=== PATIENT | female | born 1945 | race Caucasian/White ===

== ENCOUNTER 2020-10-06 13:33 | Observation (INO) ==
[2020-10-06] MEDS ORDERED: ASPIRIN 325 MG TABLET PO STA (13:49)
[2020-10-06 14:37] LABS: Basophils % 0.5 % (0.0-0.8); Eosinophils % 0.5 % (0.00-10.9); Hematocrit 36.2 VOL% (35.7-47.0); Hemoglobin 11.5 GM/DL (12.0-16.0); Immature Granulocytes % 0.3 %; Immature Granulocytes Absolute 0.02 #; Lymphocytes # 1.1 10*3/uL (1.4-4.0); Lymphocytes % 13.3 % (21.3-54.2); Mean Corpuscular HGB Conc 31.8 GM/DL (32-36); Mean Platelet Volume 9.2 FL (9.6-12.0); Monocytes % 6.4 % (1.7-12.7); Platelet Count 222 T/CUMM (130-400); Red Blood Count 4.36 MC/CUMM (3.8-5.5); Red Cell Distribution Width 17.5 % (9.3-17.3)
[2020-10-06 14:48] LABS: INR 1.2; PT Patient Result 12.4 SECS (9.8-11.9)
[2020-10-06 14:59] LABS: Albumin 3.3 G/DL (3.4-5.0); Bilirubin,Total 0.6 MG/DL (0.2-1.0); Calcium 8.6 MG/DL (8.5-10.1); Osmolality,Calculated 265.4 MOS/KG (273-304); Potassium 3.7 MMOL/L (3.5-5.1); Total Protein 6.7 G/DL (6.4-8.2)
[2020-10-06] MEDS ORDERED: ACETAMINOPHEN 325 MG TABLET PO PRN (15:46)
[2020-10-06] MEDS ORDERED: ZALEPLON 5 MG CAPSULE PO PRN (15:46)
[2020-10-06] MEDS ORDERED: diphenhydrAMINE CAP 25 MG CAPSULE PO PRN (15:46)
[2020-10-06] MEDS ORDERED: ENOXAPARIN 40 MG/0.4 ML SYRINGE SUBCUT SCH (17:00)
[2020-10-06] MEDS ORDERED: WARFARIN 3 MG TABLET PO SCH (18:00)
[2020-10-06] MEDS: MEMANTINE 10 MG TABLET PO SCH (20:18)
[2020-10-06] MEDS: METHOCARBAMOL 500 MG TABLET PO SCH (20:18)
[2020-10-06] MEDS: OMEGA 3 ACID ETHYL ESTERS 1 GM CAPSULE PO SCH (20:18)
[2020-10-06] MEDS: DONEPEZIL 10 MG TABLET PO SCH (20:18)
[2020-10-06] MEDS ORDERED: ASPIRIN EC 81 MG TABLET PO SCH (21:00)
[2020-10-06] MEDS ORDERED: ONDANSETRON 4 MG/2 ML VIAL IV PRN (22:12)
[2020-10-07 04:45] LABS: Basophils % 0.2 % (0.0-0.8); Hemoglobin 11.3 GM/DL (12.0-16.0); Immature Granulocytes % 0.3 %; Immature Granulocytes Absolute 0.03 #; Lymphocytes # 1.2 10*3/uL (1.4-4.0); Lymphocytes % 12.3 % (21.3-54.2); Mean Corpuscular HGB Conc 31.4 GM/DL (32-36); Mean Corpuscular Volume 83.5 FL (87-102); Mean Platelet Volume 9.4 FL (9.6-12.0); Monocytes % 6.5 % (1.7-12.7); Neutrophils % 80.7 % (38.7-73.9); Platelet Count 208 T/CUMM (130-400); Red Blood Count 4.31 MC/CUMM (3.8-5.5); Red Cell Distribution Width 17.7 % (9.3-17.3); White Blood Count 9.6 T/CUMM (4-12)
[2020-10-07 05:10] LABS: Potassium 4.4 MMOL/L (3.5-5.1)
[2020-10-07] MEDS: POTASSIUM CHLORIDE 10 MEQ TABLET PO SCH (08:50)
[2020-10-07] MEDS: CHOLECALCIFEROL 5,000 UNIT TABLET PO SCH (08:50)
[2020-10-07] MEDS: MEMANTINE 10 MG TABLET PO SCH ×2 (08:50→20:56)
[2020-10-07 09:09] LABS: INR 1.3; PT Patient Result 13.5 SECS (9.8-11.9)
[2020-10-07] MEDS ORDERED: KETOROLAC 15 MG/1 ML VIAL IV ONE (09:29)
[2020-10-07] MEDS: COLCHICINE 0.6 MG CAPSULE PO SCH ×2 (10:39→20:55)
[2020-10-07] MEDS: METOPROLOL TARTRATE 25 MG TABLET PO SCH ×2 (10:39→20:55)
[2020-10-07] MEDS: ALBUTEROL 0.63 MG/3 ML NEB RESP TX SCH ×2 (13:40→19:32)
[2020-10-07] MEDS ORDERED: MORPHINE 4 MG/1 ML VIAL IV PRN (18:23)
[2020-10-07] MEDS ORDERED: NITROGLYCERIN SL 0.4 MG TABLET SL PRN (18:25)
[2020-10-07] MEDS: OMEGA 3 ACID ETHYL ESTERS 1 GM CAPSULE PO SCH (20:56)
[2020-10-07] MEDS: DONEPEZIL 10 MG TABLET PO SCH (20:56)
[2020-10-07] MEDS: METHOCARBAMOL 500 MG TABLET PO SCH (20:56)
[2020-10-08] MEDS: ALBUTEROL 0.63 MG/3 ML NEB RESP TX SCH ×2 (00:35→07:05)
[2020-10-08 05:15] LABS: Basophils % 0.4 % (0.0-0.8); Eosinophils # 0.1 10*3/uL (0.0-0.87); Eosinophils % 1.2 % (0.00-10.9); Hematocrit 33.2 VOL% (35.7-47.0); Hemoglobin 10.7 GM/DL (12.0-16.0); Immature Granulocytes % 0.4 %; Immature Granulocytes Absolute 0.03 #; Lymphocytes % 12.5 % (21.3-54.2); Mean Corpuscular HGB Conc 32.2 GM/DL (32-36); Mean Corpuscular Volume 82.4 FL (87-102); Mean Platelet Volume 9.9 FL (9.6-12.0); Neutrophils % 74.5 % (38.7-73.9); Platelet Count 188 T/CUMM (130-400); Red Blood Count 4.03 MC/CUMM (3.8-5.5); Red Cell Distribution Width 17.6 % (9.3-17.3); White Blood Count 8.3 T/CUMM (4-12)
[2020-10-08 05:25] LABS: INR 1.2; PT Patient Result 13.5 SECS (9.8-11.9)
[2020-10-08 05:44] LABS: Calcium 8.5 MG/DL (8.5-10.1); Potassium 3.8 MMOL/L (3.5-5.1)
[2020-10-08] MEDS ORDERED: ALPRAZolam 0.25 MG TABLET PO PRN (09:36)
[2020-10-08] MEDS: POTASSIUM CHLORIDE 10 MEQ TABLET PO SCH (09:53)
[2020-10-08] MEDS: METOPROLOL TARTRATE 25 MG TABLET PO SCH (09:53)
[2020-10-08] MEDS: MEMANTINE 10 MG TABLET PO SCH (09:53)
[2020-10-08] MEDS: CHOLECALCIFEROL 5,000 UNIT TABLET PO SCH (09:53)
[2020-10-08] MEDS: COLCHICINE 0.6 MG CAPSULE PO SCH (09:53)
[2020-10-08 11:23] VITALS: BP 107/77
== END 2020-10-08 11:48 | disposition home or self-care (01) ==
LOC: EDBD → EDUNIT# → N.EDINP 13:33 → N.ED 13:33 → N.ICU 17:01 → N.TELES 10-07 14:26
PROVIDERS: ADMIT Internal Medicine Cardiovascular Disease; ATTEND Internal Medicine Cardiovascular Disease